=== PATIENT | female | born 1940 | race Caucasian/White ===

== ENCOUNTER → 2023-12-08 10:47 | Outpatient (REF) | payer MEDICARE, SELFPAY | LOC: RAD 10:47 | PROVIDERS: ATTENDING PHYSICIAN Otolaryngology Facial Plastic Surgery; FAMILY PHYSICIAN Family Medicine | DX: R13.12 Dysphagia, oropharyngeal phase (principal); J30.1 Allergic rhinitis due to pollen; K21.9 Gastro-esophageal reflux disease without esophagitis | CPT/HCPCS: 74221 ==

== ENCOUNTER → 2024-01-11 11:42 | Outpatient (REF) | payer MEDICARE, SELFPAY | LOC: RAD 11:42 | PROVIDERS: ATTENDING PHYSICIAN Family Medicine | DX: R51.9 Headache, unspecified (principal) | CPT/HCPCS: 70450 ==

== ENCOUNTER → 2024-02-15 11:14 | Outpatient (REF) | payer MEDICARE, SELFPAY ==
[2024-02-15 12:13] LABS: % Basophils 0.5 % (0-2); % Eosinophils 1.6 % (0-6); % Immature Granulocytes 0.3 % (0-0.5); % Monocytes 10.5 % (1.7-9.3); % Neutrophils 70.1 % (42.2-75.2); Absolute Eosinophils 0.1 10^3/uL (0-0.7); Absolute Monocytes 0.6 10^3/uL (0.1-0.6); Hematocrit 37.8 % (37.0-47.0); Hemoglobin 12.4 g/dL (12.0-16.0); Mean Corp Hgb Conc. 32.8 g/dL (33.0-37.0); Mean Corpuscular Volume 94.5 fL (81.0-99.0); Mean Platelet Volume 10.8 fL (7.4-10.4); Nucleated Red Blood Cells % 0 %; Platelet Count 208 10^3/uL (130-400); Red Cell Dist. Width 13.9 % (11.5-14.5); White Blood Cell Count 5.7 10^3/uL (4.8-10.8)
[2024-02-15 12:54] LABS: ALT (SGPT) 27 U/L (0-35); AST (SGOT) 39 U/L (14-36); Albumin 4.6 g/dl (3.5-5.0); Alkaline Phosphatase 69 U/L (38-126); Blood Urea Nitrogen 24 mg/dl (7-17); Calcium 9.7 mg/dl (8.4-10.2); Carbon Dioxide 25 mmol/L (22-30); Chloride 107 mmol/L (98-107); Glucose 94 mg/dl (70-99); HDL Cholesterol 67 mg/dl; LDL Cholesterol, Calculated 85 mg/dl; Potassium 4.3 mmol/L (3.5-5.1); Sodium 143 mmol/L (135-145); Total Bilirubin 0.7 mg/dl (0.2-1.3); Total Cholesterol 178 mg/dl (50-199); Total Protein 7.8 g/dl (6.3-8.2); Triglyceride 133 mg/dl (10-149); Very Low Density Lipoprotein 26 mg/dl (0-30); eGFR 50.17
[2024-02-15 12:57] LABS: C-Reactive Protein < 5.00 mg/L (0.0-10.00)
[2024-02-15 12:59] LABS: Erythrocyte Sed Rate 22 mm/hour (0-20)
[2024-02-15 13:28] LABS: TSH 1.61 uIU/ml (0.47-4.68)
== END ==
LOC: REG 11:14
PROVIDERS: ATTENDING PHYSICIAN Family Medicine
DX: I25.10 Atherosclerotic heart disease of native coronary artery without angina pectoris (principal); E03.9 Hypothyroidism, unspecified; Z79.02 Long term (current) use of antithrombotics/antiplatelets; R53.83 Other fatigue; R51.9 Headache, unspecified
CPT/HCPCS: 36415; 80053; 80061; 84443; 85025; 85652; 86140

== ENCOUNTER → 2024-07-06 12:07 | Outpatient (REF) | payer MEDICARE, SELFPAY ==
[2024-07-06 15:01] LABS: ALT (SGPT) 28 U/L (0-35); AST (SGOT) 36 U/L (14-36); Albumin 4.8 g/dl (3.5-5.0); Alkaline Phosphatase 69 U/L (38-126); Blood Urea Nitrogen 26 mg/dl (7-17); Calcium 9.8 mg/dl (8.4-10.2); Carbon Dioxide 27 mmol/L (22-30); Chloride 100 mmol/L (98-107); Glucose 100 mg/dl (70-99); Potassium 4.3 mmol/L (3.5-5.1); Sodium 141 mmol/L (135-145); Total Bilirubin 0.8 mg/dl (0.2-1.3); Total Protein 7.9 g/dl (6.3-8.2); eGFR 49.86
[2024-07-06 15:14] LABS: TSH 1.01 uIU/ml (0.47-4.68)
== END ==
LOC: REG 12:07
PROVIDERS: ATTENDING PHYSICIAN Family Medicine
DX: K76.0 Fatty (change of) liver, not elsewhere classified (principal); E03.9 Hypothyroidism, unspecified
CPT/HCPCS: 36415; 80053; 84443

== ENCOUNTER → 2024-07-11 13:30 | Outpatient (REF) | payer MEDICARE, SELFPAY | LOC: RAD 13:30 | PROVIDERS: ATTENDING PHYSICIAN Nurse Practitioner; FAMILY PHYSICIAN Family Medicine | DX: I71.21 Aneurysm of the ascending aorta, without rupture (principal) | CPT/HCPCS: 71250 ==

== ENCOUNTER → 2024-07-18 11:35 | Outpatient (REF) | payer MEDICARE, SELFPAY | LOC: DHCBC/DCA 11:35 | PROVIDERS: ATTENDING PHYSICIAN Nurse Practitioner; FAMILY PHYSICIAN Family Medicine | DX: R07.89 Other chest pain (principal) | CPT/HCPCS: 78452; 93017; A9500; J2785 ==

== ENCOUNTER → 2024-10-08 12:45 | Outpatient (REF) | payer MEDICARE, SELFPAY ==
[2024-10-08 15:00] LABS: Blood Urea Nitrogen 23 mg/dl (7-17); Calcium 9.6 mg/dl (8.4-10.2); Carbon Dioxide 28 mmol/L (22-30); Chloride 101 mmol/L (98-107); Glucose 117 mg/dl (70-99); Potassium 4.1 mmol/L (3.5-5.1); Sodium 138 mmol/L (135-145); eGFR 49.86
== END ==
LOC: REG 12:45
PROVIDERS: ATTENDING PHYSICIAN Nurse Practitioner; FAMILY PHYSICIAN Family Medicine
DX: I10 Essential (primary) hypertension (principal)
CPT/HCPCS: 36415; 80048

== ENCOUNTER → 2024-10-17 14:36 | Outpatient (REF) | payer MEDICARE, SELFPAY | LOC: WDC 14:36 | PROVIDERS: ATTENDING PHYSICIAN Family Medicine | DX: Z12.31 Encounter for screening mammogram for malignant neoplasm of breast (principal); M81.0 Age-related osteoporosis without current pathological fracture | CPT/HCPCS: 77063; 77067; 77080 ==

== ENCOUNTER 2024-11-29 09:57 | Emergency (ER) | payer MEDICARE, SELFPAY ==
[2024-11-29 10:12] VITALS: BP 175/93
[2024-11-29 11:17] VITALS: BMI 25.8
[2024-11-29 11:21] VITALS: BP 157/81
[2024-11-29 11:37] LABS: % Basophils 0.5 % (0-2); % Eosinophils 0.6 % (0-6); % Immature Granulocytes 0.6 % (0-0.5); % Lymphocytes 13.9 % (20.5-51.1); % Monocytes 6.4 % (1.7-9.3); Absolute Eosinophils 0.1 10^3/uL (0-0.7); Absolute Immature Granulocytes 0.1 10^3/uL (0-0.05); Absolute Lymphocytes 1.1 10^3/uL (1.2-3.4); Absolute Monocytes 0.5 10^3/uL (0.1-0.6); Absolute Neutrophils 6.4 10^3/uL (1.4-6.5); Hematocrit 39.2 % (37.0-47.0); Hemoglobin 13.3 g/dL (12.0-16.0); Mean Corp Hgb Conc. 33.9 g/dL (33.0-37.0); Mean Corpuscular Hgb 30.9 pg (27.0-31.0); Mean Platelet Volume 10.6 fL (7.4-10.4); Nucleated Red Blood Cells % 0 %; Platelet Count 209 10^3/uL (130-400); Red Blood Cell Count 4.31 10^6/uL (4.20-5.40); Red Cell Dist. Width 13.9 % (11.5-14.5); White Blood Cell Count 8.1 10^3/uL (4.8-10.8)
[2024-11-29] MEDS: OMNIPAQUE 50 ML PO (11:53)
[2024-11-29 12:00] VITALS: BP 146/78
[2024-11-29 12:00] LABS: ALT (SGPT) 26 U/L (0-35); AST (SGOT) 37 U/L (14-36); Albumin 4.8 g/dl (3.5-5.0); Alkaline Phosphatase 80 U/L (38-126); Blood Urea Nitrogen 20 mg/dl (7-17); Calcium 9.9 mg/dl (8.4-10.2); Carbon Dioxide 25 mmol/L (22-30); Chloride 103 mmol/L (98-107); Estimated Creatinine Clearance 35 ml/min; Glucose 112 mg/dl (70-99); Lipase 345 U/L (23-300); Potassium 4.3 mmol/L (3.5-5.1); Sodium 140 mmol/L (135-145); Total Protein 8.2 g/dl (6.3-8.2)
--- NOTE | 2024-11-29 12:42 | ED.GENMED ---
History of Present Illness
General
Chief Complaint: Abdominal Symptoms
Source: patient
Exam Limitations: none
Time Seen by Provider: 11/29/24 11:27
Nursing documentation reviewed up to this point in time: agreed with
History of Present Illness
History of Present Illness:
84 Y/O F with h/o htn, cad s/p stent
remote colon resection secondary to diverticulitis
here with waxing and waning abd pain that acutally has been ongoin gfor weeks, even months
the pain is mid to lower abd and comes and goes
nothing specifically makes it better or worse
she figured 'it probably would just go away' which is why she didn't get evaluated
pt takes her BP 3-4 times a day routinely
she has been having elevated BP readings and is being sent to [facility] but in the meantime was started on amlodpine 5 mg a few weeks ago but had some swelling in her legs so she wants to stop it
pt says that she has noticed labile bp reading sand isn't sure if this is related to her abd pain
she showed me her written down note with her bp readings and she has 110s/60s-150/s80s
she has not had any super high or super low readings
No chest pain, no shortness of breath. No headache, no vision changes, no fever. Patient did states she had chills when her blood pressure was 'low' yesterday and the lowest reading being 108/60. Patient did not have a fever that she knows of.
When asked why she came today versus any other day she does not really have a specific answer for that
Past History
Past History
ED Past Medical History: CAD, GERD, HTN, Hypercholesterolemia, Hypothyroidism and Other (Arthritis, diverticulitis)
ED Past Surgical History: None, Appendectomy, Cardiac (Stent) and Gynecological (Hysterectomy)
Social History
Tobacco: Non-smoker
Alcohol: None
Personal:
Living: alone
Review of Systems
Review of Systems
Allergies reviewed?: Yes
All Other Systems: Not applicable
Phy Exam
Physical Exam
Physical Exam:
GENERAL: Alert , in no apparent distress, looks comfortable
EYE: pupils equal and reactive
NECK: Supple
ENT: o/p clr, mmm.
CARDIAC: Regular rate and rhythm . Murmur appreciated
LUNGS: Clear breath sounds bilaterally, no acute respiratory distress, no wheezes/rales/rhonchi
ABDOMEN: Soft, minimal lower abdominal tenderness s, no r/g, no cvat, normal bowel sounds
NEUROLOGICAL: Alert and oriented, no focal neuro deficits
SKIN: Warm and dry, skin intact.
MUSCULOSKELETAL: No edema, well perfused.
PSYCH: Normal and appropriate interaction.
Course
Orders/Labs/Results
Orders:
Orders
11/29/24 11:19
Complete Blood Count/With Diff Urgent
Comprehensive Metabolic Panel Urgent
Lipase Urgent
11/29/24 11:45
Electrocardiogram (*1) Urgent
Reason for Study: Abdominal Pain
CT Abd/pel W Iv And Oral Contr Urgent
Comment:
Reason For Exam: lower abd pain x weeks, h/o partial colectomy
EKG- Treatment ONCE
Iohexol [Omnipaque] See Protocol PO NOW STA
11/29/24 12:40
Troponin I Urgent
11/29/24 14:45
Urinalysis Reflex To Culture Urgent
Date Specimen was Collected: 11/29/24
Time Specimen was Collected: 14:42
Abnormal Lab Results
11/29/24
11:19
MPV 10.6 H fL
(7.4-10.4)
Abs Immat Gran (auto) 0.1 H 10^3/uL
(0-0.05)
Absolute Lymphs (auto) 1.1 L 10^3/uL
(1.2-3.4)
Immature Gran % 0.6 H %
(0-0.5)
Neutrophils % 78.0 H %
(42.2-75.2)
Lymphocytes % 13.9 L %
(20.5-51.1)
BUN 20 H mg/dl
(7-17)
Glucose 112 H mg/dl
(70-99)
AST 37 H U/L
(14-36)
Lipase 345 H U/L
(23-300)
11/29/24 11:19
11/29/24 11:19
Vital Signs
Initial and Last Documented VS:
Initial Vital Signs
Temp Pulse Resp BP Pulse Ox
37.1 C 63 16 175/93 99
11/29/24 10:12 11/29/24 10:12 11/29/24 10:12 11/29/24 10:12 11/29/24 10:12
Last Documented Vital Signs
Temp Pulse Resp BP Pulse Ox
37.1 C 53 18 135/74 96
11/29/24 10:12 11/29/24 15:45 11/29/24 15:45 11/29/24 15:00 11/29/24 15:30
MDM/Problems Addressed
Differential Diagnosis Includes:
diverticulitis, uti, constipation, hypertension, AAA
MDM/Problems Addressed:
84 y/o F
remote partial colectomy from divertic
here with intermittent abd pain for weeks
not progressive
no real associated symptoms
moving bowels, no vomiting, no fever
had some labile bp readings for her the past few weeks and is on new medication
due for cards f/u
no cp, sob
her readings are not signfiiantly high or low
she has no sign of end organ damage
ekg noNSPECIFIC biphasic t wave
trpo neg
lipase chronically mildly elevatd 300s
normal wbc
ct shows renal cyst othewrise neg
ua neg
bp [id number] here
will d/c home for outpatietn f/u
*Critical Care Note
Total Time (30-74mins, 75-104mins- exclusive of procedures): Not Applicable
ED Attending Note
-
Portions of this chart may have been created with voice recognition software.� Occasional wrong word or��sound alike� substitutions may have occurred due to the inherent limitations of voice recognition software.
Discharge Plan
Departure
Patient Disposition: Home (Routine Discharge)
Date of Disposition: 11/29/24
Time of Disposition: 16:07
Patient with high blood pressure during this ER visit?: Yes
Condition: Fair
Discharge Problem:
Abdominal pain
Instructions: Abdominal Pain, BLOOD PRESSURE
Prescriptions:
No Action
aspirin 81 MG tablet,delayed release (DR/EC)
81 mg PO DAILY@1300
levothyroxine [Synthroid] 75 MCG tablet
75 mcg PO DAILY@0730
atorvastatin 40 MG tablet
40 mg PO DAILY@1930
metoprolol succinate 50 MG tablet extended release 24 hr
50 mg PO DAILY@1000
omeprazole 40 MG capsule,delayed release(DR/EC)
40 mg PO DAILY@1400
valsartan 80 MG tablet
80 mg PO DAILY@1000
hydrocodone-acetaminophen 1 TABLET tablet
1 - 2 tab PO Q4HPRN PRN (Reason: moderate to severe pain) Qty: 30 0RF
valacyclovir [Valtrex] 1,000 MG tablet
1,000 mg PO Q12 Qty: 16 0RF
Referrals:
Carlotta Woods MD [Family Provider] - Follow up in 2-3 days
Activity Restrictions/Additional Instructions:
WE ARE NOT SURE THE CAUSE OF YOUR SYMPTOMS
YOUR BLOOD WORK WAS REASSURING
YOUR EKG WAS SUBTLY ABNORMAL BUT THE OLD ONE WE HAVE IS FROM 2015 AN D YOUR CARDIAC MARKER WAS NEG
YOUR CAT SCAN DID NOT SHOW ANY CONCERNS FOR INFECTION/DIVERTICULTIIS
PLEASE FOLLOW UP WITH YOUR FAMILY DOCTOR AND YOUR GI DOCTOR
BUT YOU ALSO HAD SOME MILD ELEVTION OF YOUR BLOOD PRESSURE; IT SOUNDS LIKE YOU ARE ALREADY BEING MANAGED BY CARDIOLOGY, SO BE SURE TO FOLLOW UP WITH THEM
RETURN FOR ANY CONCERNS.
Interventions
Interventions:
*Risk Screen - Suicide Last Done: 11/29/24 11:17
*General Assessment Last Done: 11/29/24 11:17
*Neglect/Abuse Screening Last Done: 11/29/24 11:17
*ED- Fall Risk Assessment Last Done: 11/29/24 11:17
*ED COVID-19 Vaccine History Last Done: 11/29/24 11:17
SK-Tvdtgk-Lkrqtjpema Assessment Last Done: 11/29/24 11:17
Discharge Date and Time
Print Language: DUTCH
[2024-11-29 13:00] VITALS: BP 148/67
[2024-11-29 13:39] LABS: Troponin I < 0.012 ng/ml
[2024-11-29 14:19] VITALS: BP 146/73
[2024-11-29 15:00] VITALS: BP 135/74
[2024-11-29 15:05] LABS: Urine Albumin Negative (Neg - Trace); Urine Bilirubin Negative (Negative); Urine Character Clear (Clear); Urine Color Yellow; Urine Glucose Negative (Negative); Urine Ketone Negative (Negative); Urine Leukocyte Negative (Negative); Urine Nitrite Negative (Negative); Urine Occult Blood Negative (Negative); Urine Urobilinogen Negative (Neg - 1+)
== END 2024-11-29 17:41 | disposition home or self-care (01) ==
LOC: EMR 09:57
PROVIDERS: Physician Assistant; EMERGENCY PHYSICIAN Student in an Organized Health Care Education/Training Program; FAMILY PHYSICIAN Family Medicine
DX: R10.30 Lower abdominal pain, unspecified (principal); N28.1 Cyst of kidney, acquired; I10 Essential (primary) hypertension; I25.10 Atherosclerotic heart disease of native coronary artery without angina pectoris; K21.9 Gastro-esophageal reflux disease without esophagitis; E78.00 Pure hypercholesterolemia, unspecified; E03.9 Hypothyroidism, unspecified; Z95.5 Presence of coronary angioplasty implant and graft; Z90.49 Acquired absence of other specified parts of digestive tract; Z90.710 Acquired absence of both cervix and uterus
CPT/HCPCS: 99284; 74177; 80053; 81003; 83690; 84484; 85025; 93005; Q9967

== ENCOUNTER → 2024-12-28 09:54 | Outpatient (REF) | payer MEDICARE, SELFPAY ==
[2024-12-28 11:30] LABS: % Basophils 0.5 % (0-2); % Eosinophils 2.3 % (0-6); % Immature Granulocytes 0.3 % (0-0.5); % Lymphocytes 19.1 % (20.5-51.1); % Monocytes 11.2 % (1.7-9.3); % Neutrophils 66.6 % (42.2-75.2); Absolute Eosinophils 0.1 10^3/uL (0-0.7); Absolute Lymphocytes 1.2 10^3/uL (1.2-3.4); Absolute Monocytes 0.7 10^3/uL (0.1-0.6); Hematocrit 37.7 % (37.0-47.0); Hemoglobin 12.6 g/dL (12.0-16.0); Mean Corp Hgb Conc. 33.4 g/dL (33.0-37.0); Mean Corpuscular Hgb 31.3 pg (27.0-31.0); Mean Corpuscular Volume 93.5 fL (81.0-99.0); Mean Platelet Volume 10.5 fL (7.4-10.4); Nucleated Red Blood Cells % 0 %; Platelet Count 180 10^3/uL (130-400); Red Blood Cell Count 4.03 10^6/uL (4.20-5.40); Red Cell Dist. Width 13.7 % (11.5-14.5); White Blood Cell Count 6.1 10^3/uL (4.8-10.8)
[2024-12-28 12:03] LABS: ALT (SGPT) 28 U/L (0-35); AST (SGOT) 34 U/L (14-36); Albumin 4.8 g/dl (3.5-5.0); Alkaline Phosphatase 79 U/L (38-126); Blood Urea Nitrogen 23 mg/dl (7-17); Calcium 10.1 mg/dl (8.4-10.2); Carbon Dioxide 29 mmol/L (22-30); Chloride 105 mmol/L (98-107); Glucose 102 mg/dl (70-99); HDL Cholesterol 69 mg/dl; LDL Cholesterol, Calculated 81 mg/dl; Potassium 4.5 mmol/L (3.5-5.1); Sodium 145 mmol/L (135-145); Total Bilirubin 0.8 mg/dl (0.2-1.3); Total Cholesterol 173 mg/dl (50-199); Total Protein 7.9 g/dl (6.3-8.2); Triglyceride 117 mg/dl (10-149); Very Low Density Lipoprotein 23 mg/dl (0-30); eGFR 44.91
[2024-12-28 12:32] LABS: TSH 1.17 uIU/ml (0.47-4.68)
== END ==
LOC: REG 09:54
PROVIDERS: ATTENDING PHYSICIAN Family Medicine
DX: E78.2 Mixed hyperlipidemia (principal); K21.00 Gastro-esophageal reflux disease with esophagitis, without bleeding; E04.1 Nontoxic single thyroid nodule; E03.9 Hypothyroidism, unspecified
CPT/HCPCS: 36415; 80053; 80061; 84443; 85025

== ENCOUNTER → 2025-03-19 11:50 | Outpatient (REF) | payer MEDICARE, SELFPAY | LOC: MRI 3T 11:50 | PROVIDERS: ATTENDING PHYSICIAN Family Medicine | DX: M54.16 Radiculopathy, lumbar region (principal) | CPT/HCPCS: 72148 ==

== ENCOUNTER → 2025-03-22 07:42 | Outpatient (REF) | payer MEDICARE, SELFPAY ==
[2025-03-22 16:57] LABS: Urine Albumin Negative (Neg - Trace); Urine Bilirubin Negative (Negative); Urine Character Clear (Clear); Urine Color Yellow; Urine Glucose Negative (Negative); Urine Ketone Negative (Negative); Urine Leukocyte Negative (Negative); Urine Nitrite Negative (Negative); Urine Occult Blood Negative (Negative); Urine Specific Gravity 1.015 (<1.030); Urine Urobilinogen Negative (Neg - 1+)
== END ==
LOC: CLAB 07:42
PROVIDERS: ATTENDING PHYSICIAN Nurse Practitioner Adult Health
DX: R39.9 Unspecified symptoms and signs involving the genitourinary system (principal)
CPT/HCPCS: 81003; 87086

== ENCOUNTER → 2025-07-27 09:52 | Outpatient (REF) | payer MEDICARE, SELFPAY ==
[2025-07-27 10:49] LABS: Hematocrit 40.1 % (37.0-47.0); Hemoglobin 12.8 g/dL (12.0-16.0); Mean Corp Hgb Conc. 31.9 g/dL (33.0-37.0); Mean Corpuscular Volume 96.2 fL (81.0-99.0); Nucleated Red Blood Cells % 0 %; Platelet Count 194 10^3/uL (130-400); Red Cell Dist. Width 13.8 % (11.5-14.5)
[2025-07-27 11:15] LABS: ALT (SGPT) 25 U/L (0-35); AST (SGOT) 30 U/L (14-36); Albumin 4.9 g/dl (3.5-5.0); Alkaline Phosphatase 68 U/L (38-126); Blood Urea Nitrogen 19 mg/dl (7-17); Calcium 10.2 mg/dl (8.4-10.2); Carbon Dioxide 27 mmol/L (22-30); Chloride 104 mmol/L (98-107); Glucose 107 mg/dl (70-99); HDL Cholesterol 70 mg/dl; LDL Cholesterol, Calculated 95 mg/dl; Potassium 4.1 mmol/L (3.5-5.1); Sodium 140 mmol/L (135-145); Total Protein 8.5 g/dl (6.3-8.2); Very Low Density Lipoprotein 27 mg/dl (0-30); eGFR 55.55
[2025-07-27 11:30] LABS: Vitamin D, 25-OH*** 40.0 ng/mL (30-80)
[2025-07-27 11:43] LABS: TSH 0.68 uIU/ml (0.47-4.68)
== END ==
LOC: REG 09:52
PROVIDERS: ATTENDING PHYSICIAN Nurse Practitioner Adult Health
DX: E78.2 Mixed hyperlipidemia (principal); I10 Essential (primary) hypertension; N18.31 Chronic kidney disease, stage 3a; E55.9 Vitamin D deficiency, unspecified; E03.9 Hypothyroidism, unspecified; Z00.00 Encounter for general adult medical examination without abnormal findings; M81.0 Age-related osteoporosis without current pathological fracture
CPT/HCPCS: 36415; 80053; 80061; 82306; 84443; 85025

== ENCOUNTER → 2025-08-31 09:44 | Outpatient (REF) | payer MEDICARE, SELFPAY | LOC: RAD 09:44 | PROVIDERS: ATTENDING PHYSICIAN Student in an Organized Health Care Education/Training Program; FAMILY PHYSICIAN Family Medicine | DX: I71.21 Aneurysm of the ascending aorta, without rupture (principal) | CPT/HCPCS: 71250 ==